=== PATIENT | male | born 1960 | race Caucasian/White ===

== ENCOUNTER 2019-09-09 10:08 | Day surgery (SDC) | payer OTHER ==
[~2019-09-09] VITALS: Ht 188 cm; Wt 113.6 kg
[~2019-09-09 10:08] MED LIST: AMLO10 PO
== END 2019-09-09 12:11 | disposition home or self-care (01) ==
LOC: ORSCSDS 10:08
PROVIDERS: Surgery
PROC: 0DBK8ZX Excision of Ascending Colon, Via Natural or Artificial Opening Endoscopic, Diagnostic (ICD-10-PCS; principal; 2019-09-09 11:30)
PROC: 0DBL8ZX Excision of Transverse Colon, Via Natural or Artificial Opening Endoscopic, Diagnostic (ICD-10-PCS; principal; 2019-09-09 11:30)
DX: Z12.11 Encounter for screening for malignant neoplasm of colon (principal); Z86.010 Personal history of colon polyps; D12.3 Benign neoplasm of transverse colon; D12.2 Benign neoplasm of ascending colon; E78.5 Hyperlipidemia, unspecified; I10 Essential (primary) hypertension; Z79.899 Other long term (current) drug therapy
CPT/HCPCS: 88305; J2704; J7120

== ENCOUNTER 2024-09-23 08:49 | Day surgery (SDC) | payer OTHER ==
[~2024-09-23] VITALS: Ht 188 cm; Wt 118.4 kg
[~2024-09-23 08:49] MED LIST changes: +LOSARTAN POTAS100 M1 PO; +Lactated Ringer's 1,000 ML IV ONE; +propofoL 50 ML IV ONE
[2024-09-23] MEDS ORDERED: Lactated Ringer's 1,000 ML IV ONE (10:57)
[2024-09-23 11:59] VITALS: BP 118/69
== END 2024-09-23 12:03 | disposition home or self-care (01) ==
LOC: ORSCSDS 08:49
PROVIDERS: Surgery
PROC: 0DBN8ZX Excision of Sigmoid Colon, Via Natural or Artificial Opening Endoscopic, Diagnostic (ICD-10-PCS; principal; 2024-09-23 10:30)
DX: Z12.11 Encounter for screening for malignant neoplasm of colon (principal); Z86.0101 Personal history of adenomatous and serrated colon polyps; K63.5 Polyp of colon; I10 Essential (primary) hypertension; Z79.899 Other long term (current) drug therapy
CPT/HCPCS: 82947; 88305; J2704; J7120